=== PATIENT | female | born 1975 | race Caucasian/White ===

== ENCOUNTER 2018-05-18 07:42 | Day surgery (SDC) | payer OTHER ==
[~2018-05-18] VITALS: Ht 160 cm; Wt 90.3 kg
[2018-05-18 08:48] LABS: UCG SCREEN NEGATIVE
[2018-05-18] MEDS ORDERED: BUPIVACAINE HCL 0.5% (5MG/ML) 50ML ONE (08:54)
[2018-05-18] MEDS ORDERED: SKIN ADHESIVE 0.7 GM EA TOP ONE (08:58)
[2018-05-18] MEDS ORDERED: NORMAL SALINE 0.9% 10 ML SYR ONE (09:20)
[2018-05-18] MEDS ORDERED: BACITRACIN 50,000 UNITS/VIAL ONE (09:20)
[2018-05-18] MEDS ORDERED: CEFAZOLIN SODIUM 1000MG/VIAL ONE (10:25)
[2018-05-18] MEDS ORDERED: ONDANSETRON HCL 4MG/2ML VIAL ONE (10:25)
[2018-05-18] MEDS ORDERED: ROCURONIUM BROMIDE 10MG/ML VIAL 5ML IV ONE (10:25)
[2018-05-18] MEDS ORDERED: SUCCINYLCHOLINE CHLORIDE 200MG/10ML VIAL IV ONE (10:25)
[2018-05-18] MEDS ORDERED: LIDOCAINE HCL/PF 1% 10 MG/ML 5ML VIAL ONE (10:25)
[2018-05-18] MEDS ORDERED: SODIUM CHLORIDE 0.9% 10ML VIAL ONE (10:25)
[2018-05-18] MEDS ORDERED: PROPOFOL 200MG/20ML VIAL IV ONE (10:25)
[2018-05-18] MEDS ORDERED: FENTANYL CITRATE/PF 50MCG/ML 2ML VIAL ONE (10:25)
[2018-05-18] MEDS ORDERED: MIDAZOLAM HCL 2 MG/2 ML VIAL ONE (10:25)
[2018-05-18] MEDS ORDERED: NEOSTIGMINE METHYLSULFATE 1MG/ML 10 ML VIAL ONE (10:25)
[2018-05-18] MEDS ORDERED: GLYCOPYRROLATE 0.2 MG/ML 2ML VIAL ONE (10:25)
[2018-05-18] MEDS ORDERED: SODIUM CHLORIDE 0.9% 1,000 ML IV ONE (11:07)
[2018-05-18] MEDS ORDERED: MEPERIDINE HCL/PF 25MG/ML CPJ IV PRN (11:15)
[2018-05-18] MEDS ORDERED: HYDROMORPHONE HCL/PF 2MG/ML CPJ IV PRN (11:15)
[2018-05-18] MEDS ORDERED: ONDANSETRON HCL 4MG/2ML VIAL IV PRN (11:15)
== END 2018-05-18 13:00 | disposition home or self-care (01) ==
LOC: OR 07:42
PROVIDERS: ATTEND Surgery
DX: L72.0 Epidermal cyst (principal); E66.01 Morbid (severe) obesity due to excess calories; D64.9 Anemia, unspecified; Z88.8 Allergy status to other drugs, medicaments and biological substances
CPT/HCPCS: 11403; 81025; 88304; A4216; G0168; J0330; J0690; J2250; J2405; J3010; J3490; J7120; J2704; J2710